=== PATIENT | male | born 1990 | race Caucasian/White ===

== ENCOUNTER 2016-11-26 15:50 | Emergency (ER) | payer OTHER ==
[~2016-11-26] VITALS: Wt 100.0 kg
--- NOTE | 2016-11-26 16:37 | ERD ---
ER Documentation Chief Complaint Date/Time DATE: 11/26/16 TIME: 16:33 Chief Complaint R WRIST PAIN FROM A FALL NO DEFORMITY MILD SWELLING HPI 26-year-old male complaining of right wrist pain since yesterday. Patient stated that she tripped and fell while getting out of his car, landed on his out stretched right hand with the wrist hyperextended. Pain is localized to the radial aspect of the left wrist. Has decreased range of motion due to pain. Patient is right-hand dominant, works as a delivery driver/customer service. Denies hitting his head in the fall. Denies any other injuries. ROS All systems reviewed and are negative except as per history of present illness. Medications Home Meds Active Scripts Ibuprofen* (Motrin*) 800 Mg Tab, 800 MG PO Q8, #30 TAB Prov:BERNICE MALHOTRA J Luis. [employer] 11/26/16 Physical Exam Vitals Vital Signs Date Time Temp Pulse Resp B/P Pulse Ox O2 Delivery O2 Flow Rate FiO2 11/26/16 16:23 98.8 78 20 126/75 99 Physical Exam General impression: Well-developed, well-nourished. Alert, oriented, in no acute distress Head: Normocephalic, atraumatic. Eyes: PERRL, EOM normal. Sclerae are normal. Conjunctiva not injected. Respiration: Normal respiratory effort. Lungs clear to auscultate bilaterally. No wheezes, rales or rhonchi. Cardiovascular: Regular rate and rhythm. No murmurs or extra heart sounds. Extremities: Dorsal right hand swollen compared to the left. Slight tenderness in the dorsal aspect of the distal radius. No snuffbox tenderness. Patient has decreased flexion and extension of the right wrist due to pain. Motor function and neurovascularly intact distal to the injury. Neuro: Mental status normal, speech normal. FLORAL CLERK grossly intact. Skin: Normal turgor. No rash or lesions. Psych: Normal mood and affect. Results 24 hrs PROCEDURE: XR Wrist. CLINICAL INDICATION: Wrist pain TECHNIQUE: AP, lateral and oblique views of the right wrist were performed. COMPARISON: No prior studies are available for comparison. FINDINGS: There is a comminuted minimally displaced fracture of the distal radius, likely with articular surface involvement. The remaining osseous structures are intact. Carpal alignment appears maintained. There is soft tissue swelling. IMPRESSION: 1. Minimally displaced distal radial fracture, likely with articular surface involvement. RPTAT: AA .Farhat Owens MD, Date Time Electronically viewed and signed by .Farhat Owens MD, on 11/26/2016 17:27 .d/ CC: BERNICE MALHOTRA. [employer] Procedures/MDM Well-appearing [id number] 26-year-old male presents to the ED with right wrist pain after fall yesterday. X-ray was obtained. X-ray showed a minimally displaced distal radius fracture, likely with articular surface involvement. The area of injury was immobilized with a volar splint. Patient was noted to be comfortable and neurovascularly intact both before and after the immobilization. Patient is informed of the imaging results. Patient advised to follow-up with his PCP for orthopedic referral. Patient appears well , stable for discharge and outpatient management. Medical decision making shared with patient and family. Education provided to patient and family. Patient and family expressed understanding of the plan. Medications on discharge: Ibuprofen. Follow-up: Primary care provider in 2-3 days or return to ED if worse. BERNICE MALHOTRA NP Nov 26, 2016 16:37
--- NOTE | 2016-11-26 17:27 | RADRPT ---
PROCEDURE: XR Wrist. CLINICAL INDICATION: Wrist pain TECHNIQUE: AP, lateral and oblique views of the right wrist were performed. COMPARISON: No prior studies are available for comparison. FINDINGS: There is a comminuted minimally displaced fracture of the distal radius, likely with articular surfa ce involvement. The remaining osseous structures are intact. Carpal alignment appears maintained. There is soft tissue swelling. IMPRESSION: 1. Minimally displaced distal radial fracture, likely with articular surface involvement. RPTAT: AA .Farhat Owens MD, MD Date Time Electronically viewed and signed by .Farhat Owens MD, MD on 11/26/2016 17:27 .d/
[2016-11-26] MEDS ORDERED: IBUP800T25 PO (17:40)
[2016-11-26 18:22] VITALS: BP 120/75; PULSE 78; RESP 20; TEMP 98.2
== END 2016-11-26 18:23 | disposition home or self-care (01) ==
LOC: FTE 15:50 → EDBD 15:50 → FTE 18:23
DX: S52.501A Unspecified fracture of the lower end of right radius, initial encounter for closed fracture (principal); W01.0XXA Fall on same level from slipping, tripping and stumbling without subsequent striking against object, initial encounter; Y92.9 Unspecified place or not applicable